=== PATIENT | male | born 1985 | race Caucasian/White ===

== ENCOUNTER 2021-06-01 07:28 | Outpatient (REF) | payer OTHER, SELFPAY ==
[2021-06-01 16:15] LABS: HCT 51.1 % (40.0-50.0); HGB 17.7 g/dL (13.5-17.5); MCH 34.4 pg (27.0-33.0); MCHC 34.6 % (32.0-36.0); MCV 99.4 fL (80-95); MPV 9.4 fL (8.0-11.0); Platelet Count 293 10^3/uL (130-400); RBC 5.14 10^6/uL (4.36-5.78); RDW 12.1 % (11.8-14.1); WBC 8.37 10^3/uL (4.4-10.8)
[2021-06-01 17:48] LABS: ALT 49 U/L (16-63); AST 36 U/L (15-37); Albumin 4.5 g/dL (3.4-5.0); Alkaline Phosphatase 56 U/L (46-116); BUN 14 mg/dL (7-18); Bilirubin, Total 0.4 mg/dL (0.2-1.0); CREATININE 0.8 mg/dL (0.70-1.30); Calcium 9.3 mg/dL (8.5-10.1); Calculated LDL 143 mg/dL (<100); Chloride 104 mmol/L (98-107); Cholesterol 231 mg/dL (<200); Glucose 116 mg/dL (74-106); HDL Cholesterol 76 mg/dL (40-60); Potassium 4.5 mmol/L (3.5-5.1); Sodium 142 mmol/L (136-145); Total Protein 7.3 g/dL (6.4-8.2); Triglyceride 63 mg/dL (<150)
== END 2021-06-01 07:29 | disposition home or self-care (01) ==
LOC: NCHCN 07:28
PROVIDERS: Visit Provider Physician Assistant
DX: Z00.00 Encounter for general adult medical examination without abnormal findings (principal); I10 Essential (primary) hypertension
CPT/HCPCS: 80053; 80061; 85027

== ENCOUNTER 2022-04-12 16:05 | Outpatient (REF) | payer SELFPAY ==
[2022-04-12 14:53] LABS: Hemoglobin A1C 5.4 % (<5.7)
[2022-04-12 15:04] LABS: Anion Gap 13.4 mmol/L (3-11); BUN 10 mg/dL (7-18); CO2 24.6 mmol/L (21.0-32.0); CREATININE 0.9 mg/dL (0.70-1.30); Calculated LDL 156 mg/dL (<100); Chloride 106 mmol/L (98-107); Cholesterol 261 mg/dL (<200); Glucose 112 mg/dL (74-106); HDL Cholesterol 74 mg/dL (40-60); Potassium 4.6 mmol/L (3.5-5.1); Sodium 144 mmol/L (136-145); Triglyceride 155 mg/dL (<150)
== END 2022-04-12 16:06 | disposition home or self-care (01) ==
LOC: NCHCN 16:05
PROVIDERS: Visit Provider Physician Assistant
DX: E78.5 Hyperlipidemia, unspecified (principal); R73.9 Hyperglycemia, unspecified; I10 Essential (primary) hypertension
CPT/HCPCS: 80048; 80061; 83036

== ENCOUNTER 2023-05-04 09:14 | Outpatient (REF) | payer MEDICAID, SELFPAY ==
[2023-05-04 15:18] LABS: Hemoglobin A1C 5.1 % (<5.7)
[2023-05-04 15:43] LABS: ALT 37 U/L (16-63); AST 29 U/L (15-37); Albumin 3.8 g/dL (3.4-5.0); Alkaline Phosphatase 81 U/L (46-116); Anion Gap 9.7 mmol/L (3-11); BUN 11 mg/dL (7-18); Bilirubin, Total 0.4 mg/dL (0.2-1.0); CO2 26.3 mmol/L (21.0-32.0); CREATININE 0.9 mg/dL (0.70-1.30); Calculated LDL 185 mg/dL (<100); Chloride 106 mmol/L (98-107); Cholesterol 274 mg/dL (<200); Estimated GFR 110.73 (mL/min/1.73m2); Glucose 104 mg/dL (74-106); HDL Cholesterol 59 mg/dL (40-60); Potassium 4.5 mmol/L (3.5-5.1); Sodium 142 mmol/L (136-145); Total Protein 7.1 g/dL (6.4-8.2); Triglyceride 154 mg/dL (<150)
== END 2023-05-04 09:15 | disposition home or self-care (01) ==
LOC: NCHCN 09:14
PROVIDERS: Visit Provider Physician Assistant
DX: R73.9 Hyperglycemia, unspecified (principal); E78.5 Hyperlipidemia, unspecified
CPT/HCPCS: 80053; 80061; 83036

== ENCOUNTER 2023-12-16 08:04 | Outpatient (REF) | payer MEDICAID, SELFPAY ==
[2023-12-16 15:02] LABS: HCT 50.2 % (40.0-50.0); HGB 17.4 g/dL (13.5-17.5); MCHC 34.7 % (32.0-36.0); MCV 101 fL (80-95); MPV 9.1 fL (8.0-11.0); Platelet Count 314 10^3/uL (130-400); RBC 4.97 10^6/uL (4.36-5.78); RDW 12.1 % (11.8-14.1); RDW-SD 45.7 fL; WBC 9.03 10^3/uL (4.4-10.8)
[2023-12-16 15:24] LABS: ALT 38 U/L (16-63); AST 33 U/L (15-37); Alkaline Phosphatase 80 U/L (46-116); Anion Gap 12.2 mmol/L (3-11); BUN 15 mg/dL (7-18); Bilirubin, Total 0.4 mg/dL (0.2-1.0); CO2 24.8 mmol/L (21.0-32.0); CREATININE 0.9 mg/dL (0.70-1.30); Calcium 9.1 mg/dL (8.5-10.1); Calculated LDL 93 mg/dL (<100); Chloride 107 mmol/L (98-107); Cholesterol 194 mg/dL (<200); Estimated GFR 110.73 (mL/min/1.73m2); Glucose 103 mg/dL (74-106); HDL Cholesterol 58 mg/dL (40-60); Potassium 4.5 mmol/L (3.5-5.1); Sodium 144 mmol/L (136-145); Triglyceride 216 mg/dL (<150)
== END 2023-12-16 08:05 | disposition home or self-care (01) ==
LOC: NCHCN 08:04
PROVIDERS: PCP Physician Assistant; Visit Provider Physician Assistant
DX: E78.5 Hyperlipidemia, unspecified (principal); I10 Essential (primary) hypertension
CPT/HCPCS: 80053; 80061; 85027